=== PATIENT | male | born 1935 | race Hispanic/Latino ===

== ENCOUNTER 2017-02-02 08:28 | Outpatient (CLI) | payer MEDICARE ==
--- NOTE | 2017-02-02 11:40 | CT ---
CT ABDOMEN AND PELVIS WITHOUT AND WITH IV CONTRAST: Comparison: None. History: Left testicular mass diagnosed two weeks. History of West Nile virus. Right inguinal hernia repair in the past. Hematuria. Technique: Multiple contiguous axial images were obtained in a CT of the abdomen and pelvis without and with IV contrast. Coronal reformats were performed. FINDINGS: No calcifications are seen in either kidney. The ureters and urinary bladder are unremarkable withou t suspicious lesions. No hydronephrosis is seen. No suspicious renal abnormality is present. There are calcifications in the spleen and liver compatible with granulomatous disease. The gallblad lin, adrenal glands, and pancreas are unremarkable. No free air, free fluid, or stranding changes ar e seen in the abdomen or pelvis. There is scattered diverticula in the colon. The small bowel is unremarkable. No abdominal or pelvic lymphadenopathy are present. There is prominence of the semiovale vesicles. This exam extends down through the testicles. No obvious testicular mass is appreciated but this exa m is limited in evaluation of the testicles which could be better evaluated with ultrasound. Degenerative changes are seen in the spine. Atelectasis is seen in the lung bases. A calcified granu dharmesh is seen in the right lung base. IMPRESSION: 1. No evidence of acute intraabdominal/pelvic abnormality. 2. Sequellae from prior granulomatous disease in the lung, liver, and spleen. POS: [facility]
--- NOTE | 2017-02-02 13:44 | ULT ---
TESTICULAR ULTRASOUND: HISTORY: Left testicular mass. Hematuria. COMPARISON: None. TECHNIQUE: Alexander scale, color flow, Doppler imaging, and spectral waveform analysis is performed of the left and right testicles. FINDINGS: RIGHT HEMISCROTUM: The right testicle has a homogeneous echotexture. No intratesticular masses. The right testicle me asures 2.7 x 3.0 x 3.6 cm. Right epididymis has a normal echotexture measuring 1.5 x 0.8 cm. There is an exophytic anechoic focus measuring 0.4 x 0.4 x 0.6 cm which may represent a small epididymal cyst. No significant fluid in the right hemiscrotum. LEFT HEMISCROTUM: The left testicle has a normal echotexture. No intratesticular mass. The left testicle measures 3. 9 x 3.5 x 2.5 cm. Overall, the left epididymis measures 1.1 x 0.9 cm. There is an anechoic focus m easuring 0.6 x 0.4 x 0.6 cm compatible with an epididymal cyst. No significant fluid in the left he miscrotum. TESTICULAR DOPPLER: There is vascular flow to both testicles, symmetric. IMPRESSION: 1. Bilateral epididymal cysts. 2. No evidence of intratesticular mass. 3. Symmetric vascular flow. POS: [facility]
[2017-02-02] MEDS ORDERED: Iopamidol 370 76% 100 ML VIAL ONE (14:07)
== END 2017-02-02 08:29 | disposition home or self-care (01) ==
LOC: CT 08:28
PROVIDERS: ATTEND Urology
DX: R31.29 Other microscopic hematuria (principal); D71 Functional disorders of polymorphonuclear neutrophils
CPT/HCPCS: 74178; 76870; 93976

== ENCOUNTER 2017-05-21 19:29 | Observation (INO) | payer MEDICARE ==
[2017-05-21 20:13] LABS: #Eosinphils 0.1 thou/uL (0.0-0.7); #Lymphocytes 1.3 thou/uL (1.20-3.40); #Monocytes 0.7 thou/uL (0.11-0.59); #Neutrophils 8.2 thou/uL (1.40-6.50); %Basophils 0.1 % (0.0-1.0); %Eosinophils 0.5 % (0.0-10.0); %Lymphocytes 12.6 % (21.0-51.0); %Monocytes 7.2 % (0.0-10.0); %Neutrophils 79.6 % (42.0-75.0); Hemoglobin 13.9 g/dL (14.0-18.0); Mean Corpuscular HGB CONC 33.6 g/dL (32.0-36.0); Mean Corpuscular Hemoglobin 33.5 pg (27.0-31.0); Mean Corpuscular Volume 99.6 fl (80.0-94.0); Mean Platelet Volume 8.4 fL (7.4-10.4); Platelet Count 140 thou/uL (130-400); RBC Distribution Width 11.9 % (11.5-14.5); Red Blood Cell (RBC) Count 4.16 mill/uL (4.70-6.10); White Blood Cell (WBC) Count 10.3 thou/uL (4.8-10.8)
--- NOTE | 2017-05-21 20:16 | RAD ---
CHEST ONE VIEW 05/21/17 HISTORY: Chest pain. COMPARISON: Chest one view 01/28/12. FINDINGS: There is some chronic pleural and parenchymal changes in the lung bases. No focal air space consolida tion, pneumothorax or effusion. The cardiac silhouette and mediastinal contours are similar. Multiple median sternotomy wires. IMPRESSION: No acute intrathoracic abnormality. POS: [facility]
[2017-05-21 20:32] LABS: ALT (SGPT) 17 U/L (8-55); AST (SGOT) 22 U/L (5-34); Albumin 3.8 g/dL (3.4-4.8); Alkaline Phosphatase 71 U/L (40-150); Anion Gap 14 mmol/L (10-20); BUN (Urea Nitrogen) 26 mg/dL (8.4-25.7); Bilirubin, Total 0.5 mg/dL (0.2-1.2); CK (CPK) 160 U/L (30-200); Calc. Creatinine Clearance 0 mL/min (70-130); Calcium 9.8 mg/dL (7.8-10.44); Carbon Dioxide 21 mmol/L (23-31); Chloride 108 mmol/L (98-107); Estimated GFR-MDRD 53; Globulin 3.1 g/dL (2.4-3.5); Glucose 102 mg/dL (83-110); Potassium 4.4 mmol/L (3.5-5.1); Protein, Total 6.9 g/dL (5.8-8.1); Sodium 139 mmol/L (136-145)
[2017-05-21 20:37] LABS: CKMB 4.2 ng/mL (0-6.6); Troponin I 0.015 ng/mL (< 0.028)
[2017-05-22 00:30] LABS: Troponin I 0.026 ng/mL (< 0.028)
[2017-05-22] MEDS ORDERED: Morphine 4 MG/ML Carpuject SLOW IVP PRN (01:00)
[2017-05-22] MEDS: Sodium Chloride 0.9% 1,000 ML IV SCH ×2 (03:02→16:42)
[2017-05-22 03:34] LABS: Cardiac Risk 2.4 (Less than 4.5)
[2017-05-22] MEDS ORDERED: Nitroglycerin 2% Ointment 1 INCH/1 GM Packet TOP SCH (06:00)
[2017-05-22] MEDS ORDERED: ADENOSINE 60 MG/20 ML VIAL ONE (08:16)
[2017-05-22] MEDS: Metoprolol Tartrate 25 MG TAB PO SCH ×2 (08:44→20:26)
[2017-05-22] MEDS: Aspirin 325 MG TAB PO SCH (08:44)
[2017-05-22] MEDS: Enoxaparin Sodium 40 MG/0.4 ML SYRINGE SC SCH (08:59)
[2017-05-22 09:50] LABS: Cardiac Risk 2.5 (Less than 4.5)
--- NOTE | 2017-05-22 09:53 | PDOC.PN ---
- Subjective Encounter Start Date: 05/22/17 Encounter Start Time: 07:15 Subjective: no current chest pain or dizziness -: no cough or expectoration now -: he does not recall why he was brought to ER - Objective MAR Reviewed: Yes Vital Signs & Weight: Vital Signs (12 hours) Temp Pulse Resp BP Pulse Ox 05/22/17 08:15 97.9 F 66 16 05/22/17 07:14 97.9 F 66 16 123/57 L 97 Result Diagrams: 05/21/17 20:00 05/21/17 20:00 Phys Exam - Physical Examination HEENT: PERRLA, moist MMs Neck: no JVD, supple Respiratory: no wheezing, no rales Cardiovascular: RRR, no significant murmur Gastrointestinal: soft, non-tender, positive bowel sounds Musculoskeletal: no edema, pulses present Neurological: non-focal, moves all 4 limbs Dx/Plan (1) Chest pain Code(s): R07.9 - CHEST PAIN, UNSPECIFIED Status: Acute Qualifiers: Chest pain type: unspecified Qualified Code(s): R07.9 - Chest pain, unspecified (2) Dizziness Code(s): R42 - DIZZINESS AND GIDDINESS Status: Acute (3) CAD (coronary artery disease) Code(s): I25.10 - ATHSCL HEART DISEASE OF [place] CORONARY ARTERY W/O ANG PCTRS Status: Chronic Qualifiers: Coronary Disease-Associated Artery/Lesion type: bypass graft [place] vs. transplanted heart: [place] heart Associated angina: without angina Qualified Code(s): I25.810 - Atherosclerosis of coronary artery bypass graft(s) without angina pectoris Comment: h/o cabg x5 in 2007 (4) HTN (hypertension) Code(s): I10 - ESSENTIAL (PRIMARY) HYPERTENSION Status: Chronic Qualifiers: Hypertension type: essential hypertension Qualified Code(s): I10 - Essential (primary) hypertension (5) Dementia Code(s): F03.90 - UNSPECIFIED DEMENTIA WITHOUT BEHAVIORAL DISTURBANCE Status: Chronic Qualifiers: Dementia type: unspecified type - Plan hemostable now, orthostatic BP, carotid doppler -: no fever, will check influenza Ag -: stress test, tropx3 -ve, await echo results -: ldl is good, is on lipitor -: dc home if stress test is normal * . Review of Systems - Medications/Allergies Allergies/Adverse Reactions: Allergies Allergy/AdvReac Type Severity Reaction Status Date / Time No Known Allergies Allergy Verified 05/22/17 02:32 Medications: Current Medications Aspirin (Aspirin) 325 mg PO DAILY [facility] Last Admin: 05/22/17 08:44 Dose: Not Given Enoxaparin Sodium (Lovenox) 40 mg SC 0900 [facility] Last Admin: 05/22/17 08:59 Dose: Not Given Sodium Chloride (Normal Saline 0.9%) 1,000 mls @ 75 mls/hr IV .[id number] [facility] Last Admin: 05/22/17 03:02 Dose: 1,000 mls Metoprolol Tartrate (Lopressor) 12.5 mg PO BID [facility] Last Admin: 05/22/17 08:44 Dose: Not Given Morphine Sulfate (Morphine) 2 mg SLOW IVP Q4H PRN PRN Reason: Pain Sodium Chloride (Flush - Normal Saline) 10 ml IVF Q12HR [facility] Last Admin: 05/22/17 09:25 Dose: Not Given
--- NOTE | 2017-05-22 12:02 | ULT ---
CAROTID ARTERIAL DOPPLER ULTRASOUND: DATE: 05/22/17 COMPARISON: None. HISTORY: 81-year-old male with dizziness, evaluate for carotid artery stenosis. TECHNIQUE: Multiplanar Alexander scale sonographic imaging of the arterial structures of the neck obtained with color flow and spectral analysis. FINDINGS: There is eccentric atherosclerotic plaque at the distal CCA and proximal ICA bilaterally, right great er than left. Antegrade blood flow and normal arterial waveforms are documented with the carotid and vertebral system bilaterally. VESSEL PSV (cm/sec) EDV (cm/sec) Right CCA 146 19 Right ICA 136 22 Right ECA 100 5 Left CCA 102 14 Left ICA 91 25 Left ECA 105 6 ICA/CCA ratio is 0.9 bilaterally. IMPRESSION: Increased velocity is noted within the right CCA and right ICA, correlating with a moderate degree of stenosis (50-69%). CT angiogram of neck could best assess the degree of stenosis. POS: [facility]
--- NOTE | 2017-05-22 14:15 | HP ---
CHIEF COMPLAINT: Chest pain. HISTORY OF PRESENT ILLNESS: He is an 81-year-old male with a history of hypertension, CAD, status post bypass, came to ER because of having feeling dizzy, having some chest pain, on and off dizziness for the last 2 days. So, he went to his PCP's office. Over there, a CAT scan of head was done that came back negative, but had vertigo, and he started complaining of some body aches and pain in the left arm. So, patient decided to come to the ER because of some chest tightness and pain goes to left arm. Because of persistent chest pain, he decided to come to the ER. He has had pain in the left chest; pain last started today and radiated to the left arm and also right arm, also complained of headache, pain 7/10. There is no relation with exertion. No diaphoresis. No nausea or vomiting. The patient is a very poor historian. In the ER, vital signs: Pulse 76, blood pressure 144/76, respiratory rate 18, temperature is 98.4, saturation 96% on room air. In the ER, he was given aspirin oral and kept in the hospital for chest pain rule out MA. PAST MEDICAL HISTORY: He has a history of hypertension, myocardial infarction, history of CABG. Question history of cirrhosis. PAST SURGICAL HISTORY: Appendectomy, hernia repair, CABG 5 vessels. PSYCHIATRIC HISTORY: Depression. SOCIAL HISTORY: Denies alcohol use or drug use, no smoking history. MEDICATIONS TAKEN AT HOME: Flomax 0.4 every day, Prilosec 20 mg every day, finasteride 5 mg daily, aspirin 325 every day, benazepril 5 mg daily, atorvastatin 20 mg daily, losartan 25 mg daily. FAMILY HISTORY: Noncontributory. REVIEW OF SYSTEMS: Constitutional: He denies any chills, fever, malaise, and weakness. Eyes: Denies any vision problem. ENT: Has some rhinorrhea. Denies sore throat. No bleeding from nose. Cardiovascular: He has some mild chest pain. Respiratory: He has no cough, no shortness of breath, no wheezing. Gastrointestinal: He has no abdominal pain, no diarrhea, no nausea, no vomiting. Genitourinary: Male Denies any dysuria or hematuria. Musculoskeletal: He has some left arm pain, right arm pain. Skin: Denies any rash. Neurologic: Does have some dizziness. Endocrine: Denies polyuria or polydipsia. PHYSICAL EXAMINATION: GENERAL: When examining him, he is alert, elderly male, lying in bed, and not in distress. VITAL SIGNS: Pulse 80, blood pressure 140/70, respirations 20, temperature 98.4. HEENT: Head is atraumatic, normocephalic. Pupils are round and reactive. Extraocular muscles are intact. Ears, nose, and throat are normal. Tongue mucosa moist. NECK: Supple. No JVD, no thyromegaly, no carotid bruit. CHEST: Normal vascular breathing. No added sounds. CARDIAC: S1, S2 audible. No S3 or S4. ABDOMEN: Soft. Bowel sounds audible. EXTREMITIES: No pedal edema. LABORATORY DATA: Shows EKG, pulse 82, no ST-T changes. Chest x-ray negative, no pneumonia. Labs show a WBC 10.3, hemoglobin 13.9, hematocrit 41.4, MCV 99.6 , platelets 140. Sodium 139, potassium 4.4, chloride 108, carbon dioxide 21, BUN 26, creatinine 1.2, glucose 102, calcium 9.8, total bilirubin 0.5, AST 22, ALT 17. Troponin 0.016, 0.026. Serum total protein 6.9, albumin 3.8, globulin 3.1. ASSESSMENT AND PLAN: 1. Chest pain with history of coronary artery disease and bypass in the past. Ruled out myocardial infarction by serial CK and troponin. Aspirin, nitroglycerin p.r.n., IV morphine p.r.n. for the pain. Serial troponin, echocardiogram, cardiac consultation in the morning if needed. 2. Hypertension. Continue regular medication of losartan. 3. For the hyperlipidemia, continue atorvastatin 4. Dementia. Continue Aricept. 5. History of benign prostatic hypertrophy. Continue Flomax and finasteride. 6. Mild acute kidney injury. We do not have old kidney function to compare with, though mild acute kidney injury stage 3. Continue to monitor. 7. Deep vein thrombosis prophylaxis. Lovenox. MTDD
--- NOTE | 2017-05-22 15:10 | NM ---
CARDIAC SPECT WITH EJECTION FRACTION AND WALL MOTION: HISTORY: 81-year-old male with chest pain. History of coronary artery disease. History of NH. Status post lisa nary artery bypass graft and hypertension. TECHNIQUE/FINDINGS: Adenosine sestamibi study performed. Patient was injected with 28.3 mCi technetium-99m sestamibi intr avenously for stress images and patient was injected with 9.8 mCi of technetium-99m sestamibi intrave nously for resting images. Multiple SPECT images in the short axis, vertical long axis, and horizontal long axis demonstrate no scan evidence for infarct or overt ischemia. TID: 1.38 (Upper range of normal to minimally elevated, 1.36 being normal) LHR: 0.37 EDV: 78 mL EF: 64% MYOCARDIAL PERFUSION WALL MOTION: Wall motion is unremarkable. IMPRESSION: No scan evidence for overt infarct or ischemia. Borderline TID of 1.38. POS: [facility]
--- NOTE | 2017-05-22 19:19 | CT ---
CT OF HEAD NONCONTRAST CT OF [place] OF [place] WITH 3D VOLUME RENDERING CT OF NECK WITH 3D VOLUME RENDERING: Clinical history: Stroke (CVA), dizziness. FINDINGS: Noncontrast head CT reveals no evidence of acute intracranial hemorrhage, mass effect or midline shif t. There is mild parenchymal volume loss with compensatory dilatation of the ventricular system. Mild chronic microvascular disease is present. CTA imaging of the neck reveals calcification of the imaged aortic arch, mild in degree. There is no high grade focal stenosis or occlusion of either visualized subclavian artery. Each common carotid ar prema is patent. There is eccentrically located plaque of the carotid bulbs bilaterally, greater on th e right, which does produce an approximately 60% focal stenosis at the origin of the cervical right I CA on the basis of NASCET criteria. There is soft plaque without high grade stenosis involving the pr oximal aspect of the cervical left ICA. There is no high grade focal stenosis or occlusion of either visualized vertebral artery. There is a tortuous course of the proximal left vertebral artery. There is partial termination of the distal aspect of right vertebral artery and PICA. Basilar artery is tor tuous without high grade focal stenosis. No high grade stenosis of either BUSINESS TEACHER. type circulation with hypoplastic/aplastic right P1 segment present. There is a prominent sized right posterior commu nicating artery. There is a calcification of each terminal carotid artery without high grade stenosis or occlusion. No hemodynamically significant stenosis of either visualized MCA. Bilateral ANGEL reveal no significant abnormalities. Anterior communicating arteries are unremarkable. IMPRESSION: 1. Scattered atherosclerotic vascular disease of the head and neck as discussed above. 2. There is no acute intracranial hemorrhage or mass effect. POS: [facility]
--- NOTE | 2017-05-22 20:57 | CON ---
DATE OF CONSULTATION: 05/22/2017 REASON FOR CONSULTATION: Dizziness, chest pain. HISTORY OF PRESENT ILLNESS: Mr. Avila is a pleasant 81-year-old gentleman who is a patient of Dr. Bebo Rankin. History is somewhat vague. He has underlying early dementia. His daughter states he did describe chest pressure as well as dizziness. He had left arm pain, but may have been numbness. No other exacerbating or precipitating factors present. He was seen and evaluated in the emergency room, where he was found to have an indeterminate troponin and subsequently admitted. PAST MEDICAL HISTORY: CAD, status post bypass surgery; hypertension; appendectomy; hernia repair; de pression. MEDICATIONS: Flomax, Prilosec, atorvastatin, benazepril, aspirin, finasteride, losartan. FAMILY HISTORY: Negative. REVIEW OF SYSTEMS: 10-point review of systems reviewed and as above, otherwise negative. PHYSICAL EXAMINATION: GENERAL: Patient is a pleasant male/female who is in no acute distress. The patient appears his/her stated age. VITAL SIGNS: Blood pressure 145/64, pulse 64, temperature 97.6. NEUROLOGIC: The patient is alert and oriented times 3 with no focal neurologic deficits. HEENT: Sclerae without icterus. Mouth has moist mucous membranes with normal pallor. NECK: No JVD. Carotid upstroke brisk. No bruits bilaterally. LUNGS: Clear to auscultation with unlabored respirations. BACK: No scoliosis or kyphosis. CARDIAC: Regular rate and rhythm with normal S1 and S2. No S3 or S4 noted. No significant rubs, murmurs, thrills, or gallops noted throughout the precordium. PMI is not displaced. There is no parasternal heave. ABDOMEN: Soft, nontender, nondistended. No peritoneal signs present. No hepatosplenomegaly. No abnormal striae. EXTREMITIES: 2+ femoral and 2+ dorsalis pedis pulses. No cyanosis, clubbing, or edema. SKIN: No gross abnormalities. LABORATORY DATA: Hemoglobin 13.9, peak troponin 0.026. Stress test myocardial perfusion study, no ischemia present. TID was elevated, but the end-systolic volumes appeared small. IMPRESSION: 1. Atypical chest pain. 2. Coronary artery disease. 3. Status post bypass surgery. 4. Dizziness. RECOMMENDATIONS: Mr. Avila's symptoms are somewhat atypical for angina. His troponin is negative. His stress test result is negative for ischemia. His CAD was likely over estimated due to a low end -diastolic and end-systolic volume. At this point, recommend medical therapy. A CT of the carotid i s currently pending. He does have increased velocity in the right common carotid artery, right inter nal carotid artery suggesting moderate stenosis. Other recommendations per Dr. Monica Rankin in a.m.
[2017-05-22] MEDS ORDERED: Donepezil HCl 5 MG TAB PO SCH (21:00)
[2017-05-23] MEDS: Sodium Chloride 0.9% 1,000 ML IV SCH (06:26)
[2017-05-23] MEDS: Metoprolol Tartrate 25 MG TAB PO SCH (08:38)
[2017-05-23] MEDS: Enoxaparin Sodium 40 MG/0.4 ML SYRINGE SC SCH (08:38)
[2017-05-23] MEDS: Aspirin 325 MG TAB PO SCH (08:39)
[2017-05-23] MEDS ORDERED: Docusate 100 MG CAP PO SCH (09:00)
[2017-05-23] MEDS ORDERED: Finasteride 5 MG TAB PO SCH (09:00)
[2017-05-23] MEDS ORDERED: Tamsulosin HCl 0.4 MG CAP PO SCH (09:00)
[2017-05-23] MEDS ORDERED: Atorvastatin Calcium 20 MG TAB PO SCH (09:00)
--- NOTE | 2017-05-23 11:05 | PDOC.PN ---
- Subjective Encounter Start Date: 05/23/17 Encounter Start Time: 07:00 Subjective: no dizziness, is amb in room -: daughter at bedside - Objective MAR Reviewed: Yes Vital Signs & Weight: Vital Signs (12 hours) Temp Pulse Resp BP Pulse Ox 05/23/17 08:00 97.8 F 62 16 05/23/17 07:11 97.8 F 62 16 110/55 L 95 Result Diagrams: 05/21/17 20:00 05/21/17 20:00 Phys Exam - Physical Examination HEENT: PERRLA, moist MMs Neck: no JVD, supple Respiratory: no wheezing, no rales Cardiovascular: RRR, no significant murmur Gastrointestinal: soft, non-tender, positive bowel sounds Musculoskeletal: no edema, pulses present Neurological: non-focal, moves all 4 limbs Dx/Plan (1) Chest pain Code(s): R07.9 - CHEST PAIN, UNSPECIFIED Status: Resolved Qualifiers: Chest pain type: unspecified Qualified Code(s): R07.9 - Chest pain, unspecified (2) Dizziness Code(s): R42 - DIZZINESS AND GIDDINESS Status: Resolved (3) CAD (coronary artery disease) Code(s): I25.10 - ATHSCL HEART DISEASE OF [place] CORONARY ARTERY W/O ANG PCTRS Status: Chronic Qualifiers: Coronary Disease-Associated Artery/Lesion type: bypass graft [place] vs. transplanted heart: [place] heart Associated angina: without angina Qualified Code(s): I25.810 - Atherosclerosis of coronary artery bypass graft(s) without angina pectoris Comment: h/o cabg x5 in 2007 (4) HTN (hypertension) Code(s): I10 - ESSENTIAL (PRIMARY) HYPERTENSION Status: Chronic Qualifiers: Hypertension type: essential hypertension Qualified Code(s): I10 - Essential (primary) hypertension (5) Dementia Code(s): F03.90 - UNSPECIFIED DEMENTIA WITHOUT BEHAVIORAL DISTURBANCE Status: Chronic Qualifiers: Dementia type: unspecified type (6) Carotid artery disease Code(s): I77.9 - DISORDER OF ARTERIES AND ARTERIOLES, UNSPECIFIED Status: Acute Qualifiers: Laterality: right Qualified Code(s): I77.9 - Disorder of arteries and arterioles, unspecified - Plan to f/u with [facility] as outpt -: hemostable -: d/w daughter and patient, gave a full update -: dc pt home * .
[2017-05-23 12:02] VITALS: BP 102/55; TEMP 97.6
[2017-05-23] MEDS ORDERED: ISOVUE-370 76%-LOCM 1 ML ONE (12:31)
--- NOTE | 2017-05-23 15:01 | PRG ---
DATE OF SERVICE: 05/23/2017 SUBJECTIVE: As noted, Mr. Avila was brought to the hospital here with chest pain, thought to be aty pical for angina. He has a previous history of bypass surgery and also has some degree of dementia. He is doing well today. No chest pain or pressure. OBJECTIVE: VITAL SIGNS: The blood pressure today 110/55 and pulse 62 regular. EYES: Sclerae nonicteric. LUNGS: Clear. CARDIAC: Normal S1, normal S2. ABDOMEN: Soft, nontender. EXTREMITIES: No edema. PERTINENT LABORATORY DATA: Peak troponin was 0.026, in a negative range. The LDL cholesterol one wa s 73 and one was 66. Creatinine 1.29. He had carotid studies showing only moderate narrowing, 50%-7 0% on the right side. Stress test revealed no ischemia. The TID was noted to be borderline, but the volumes were very smal l indicating this does not appear to be a clinically significant finding. ASSESSMENT: 1. Previous bypass surgery. 2. No ischemia on stress testing. 3. Cardiac enzymes just below the indeterminate range. PLAN: Discussed with the family this may be angina. I recommended continued medical therapy. Nitro glycerin if needed. If he does have recurrent chest pain, further intervention may be indicated, but at this point, based on current situation, conservative therapy appears appropriate.
--- NOTE | 2017-05-23 16:04 | CT ---
CT OF HEAD NONCONTRAST CT OF [place] OF [place] WITH 3D VOLUME RENDERING CT OF NECK WITH 3D VOLUME RENDERING: Clinical history: Stroke (CVA), dizziness. FINDINGS: Noncontrast head CT reveals no evidence of acute intracranial hemorrhage, mass effect or midline shif t. There is mild parenchymal volume loss with compensatory dilatation of the ventricular system. Mild chronic microvascular disease is present. CTA imaging of the neck reveals calcification of the imaged aortic arch, mild in degree. There is no high grade focal stenosis or occlusion of either visualized subclavian artery. Each common carotid ar prema is patent. There is eccentrically located plaque of the carotid bulbs bilaterally, greater on th e right, which does produce an approximately 60% focal stenosis at the origin of the cervical right I CA on the basis of NASCET criteria. There is soft plaque without high grade stenosis involving the pr oximal aspect of the cervical left ICA. There is no high grade focal stenosis or occlusion of either visualized vertebral artery. There is a tortuous course of the proximal left vertebral artery. There is partial termination of the distal aspect of right vertebral artery and PICA. Basilar artery is tor tuous without high grade focal stenosis. No high grade stenosis of either KETTLE COORDINATOR. type circulation with hypoplastic/aplastic right P1 segment present. There is a prominent sized right posterior commu nicating artery. There is a calcification of each terminal carotid artery without high grade stenosis or occlusion. No hemodynamically significant stenosis of either visualized MCA. Bilateral ANGEL reveal no significant abnormalities. Anterior communicating arteries are unremarkable. IMPRESSION: 1. Scattered atherosclerotic vascular disease of the head and neck as discussed above. 2. There is no acute intracranial hemorrhage or mass effect.
--- NOTE | 2017-05-24 01:11 | DIS ---
DATE OF ADMISSION: 05/22/2017 DATE OF DISCHARGE: 05/23/2017 DISCHARGE DISPOSITION: Home. PRIMARY DISCHARGE DIAGNOSES: Chest pain, dizziness, both resolved. SECONDARY DISCHARGE DIAGNOSES: Coronary artery bypass graft/coronary artery disease, hypertension, d ementia, carotid artery disease especially on the right side. PROCEDURES DONE DURING HOSPITALIZATION: Echo with 2D Doppler showed EF of 55%-60%. There was diasto lic dysfunction. Chest x-ray done showed no acute intrathoracic abnormality. Nuclear stress test do ne showed no overt infarct or ischemia, borderline TID of 1.38. Ejection fraction was 64%. Wall mot ion was unremarkable on the stress test. Carotid Doppler done showed increased velocity in the right common carotid and right internal carotid artery correlating with moderate degree of stenosis (50%-6 9%). CT angio of brain done showed no acute intracranial hemorrhage or mass effect, scattered athero sclerotic vascular disease of the head and neck was seen. Right carotid artery, there was 60% focal stenosis at the origin of the cervical right ICA on the basis of NASCET criteria. Vertebral artery, there was no high-grade focal stenosis or occlusion. Please see [facility] for complete report of the CT angio of the neck and brain. Influenza A and B antigens were negative. H&H 13 and 41, platelet c ount 140. Total cholesterol 133, triglycerides 69, LDL 66, HDL 53. Troponin x3 was negative. BUN 2 6, creatinine 1.2. INPATIENT CONSULTS: Dr. Horn/Dr. Rankin for Cardiology. DISCHARGE MEDICATIONS: Aspirin 325 mg p.o. daily, Lipitor 20 mg p.o. daily, vitamin D3 of 1000 units p.o. daily, Colace 100 mg p.o. daily, Aricept 5 mg p.o. at bedtime, finasteride 5 mg p.o. daily, Lop ressor 12.5 mg p.o. twice daily, multivitamin 1 capsule daily, omeprazole 20 mg daily, Flomax 0.4 mg p.o. daily. ALLERGIES: No known drug allergies. DISCHARGE PLAN: Patient to follow up with Dr. Rankin as advised and he also needs to follow up with Cardiothoracic Surgery for his right carotid stenosis. Family has the office number and has seen Dr. Monae in the past for his CABG. BRIEF COURSE DURING HOSPITALIZATION: Patient initially got admitted on the with complaints of c hest pain and dizziness. He has had a complete neurocardiac workup done. His ultrasound carotid rev ealed moderate right carotid stenosis and a CT angio brain was done, which confirmed the same finding s. There was no stroke. There was no acute CVA. Nuclear stress test showed no reversible ischemia, but elevated TID. He has had consultation with Dr. Horn for Cardiology and Dr. Rankin, his [facility] [employer]. Patient likely will need outpatient workup for his carotid stenosis and elevated TID. His daughter has office number for Dr. Monae and his associates and will make a followup appoi ntment shortly. If patient were to develop chest pain again, he might require cardiac catheterizatio n in view of his prior history of CABG. Please see a [facility]-pook documentation for the day of disch krystin on [facility]. He is hemodynamically stable for discharge today.
== END 2017-05-23 15:45 | disposition home or self-care (01) ==
LOC: ERS 19:29 → 2SW 05-22 02:08
PROVIDERS: ADMIT Family Medicine; ATTEND Family Medicine
DX: R07.9 Chest pain, unspecified (principal); R42 Dizziness and giddiness; I25.10 Atherosclerotic heart disease of native coronary artery without angina pectoris; I65.29 Occlusion and stenosis of unspecified carotid artery; I10 Essential (primary) hypertension; F03.90 Unspecified dementia, unspecified severity, without behavioral disturbance, psychotic disturbance, mood disturbance, and anxiety; I25.2 Old myocardial infarction; F32.9 Major depressive disorder, single episode, unspecified; N40.0 Benign prostatic hyperplasia without lower urinary tract symptoms; N17.9 Acute kidney failure, unspecified; Z90.49 Acquired absence of other specified parts of digestive tract; Z95.1 Presence of aortocoronary bypass graft; Z98.890 Other specified postprocedural states
CPT/HCPCS: 70496; 70498; 71045; 78452; 80053; 80061; 82550; 82553; 84484 ×3; 85025; 87804 ×2; 93005; 93017; 93306; 93880; 94760; 96372; 99285; A9500; G0378; 36415; A4216; J0153; J1650

== ENCOUNTER 2019-09-25 15:07 | Outpatient (CLI) | payer MEDICARE, OTHER ==
--- NOTE | 2019-09-25 15:51 | RAD ---
LEFT SHOULDER 2 VIEWS: HISTORY: Acute pain in the left shoulder. 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 No acute fracture, dislocation, or alonzo ny destruction is identified. POS: [facility]
== END 2019-09-25 15:08 | disposition home or self-care (01) ==
LOC: BICRAD 15:07
PROVIDERS: ATTEND Family Medicine
DX: M25.512 Pain in left shoulder (principal); M19.012 Primary osteoarthritis, left shoulder

== ENCOUNTER 2020-10-09 13:53 | Outpatient (CLI) | payer MEDICARE, MEDICAID | END 2020-10-09 13:54 | disposition home or self-care (01) | LOC: BICRAD 13:53 | PROVIDERS: ATTEND Family Medicine | DX: M54.5 Low back pain (principal) ==

== ENCOUNTER 2021-01-07 16:11 | Inpatient (IN) | payer MEDICARE, MEDICAID, OTHER ==
[~2021-01-07 16:11] MED LIST: Iopamidol-370 76% 500 ML 1 ML ONE
[2021-01-07 17:37] LABS: ALT (SGPT) 19 U/L (8-55); AST (SGOT) 28 U/L (5-34); Albumin 3.4 g/dL (3.4-4.8); Alkaline Phosphatase 65 U/L (40-110); Anion Gap 9 mmol/L (10-20); BUN (Urea Nitrogen) 27 mg/dL (8.4-25.7); Bilirubin, Total 0.7 mg/dL (0.2-1.2); Calc. Creatinine Clearance 0 mL/min (70-130); Calcium 9.4 mg/dL (7.8-10.44); Carbon Dioxide 27 mmol/L (23-31); Chloride 111 mmol/L (98-107); Glucose 136 mg/dL (83-110); Lipase 7 U/L (8-78); Potassium 4.4 mmol/L (3.5-5.1); Protein, Total 6.4 g/dL (5.8-8.1); Sodium 143 mmol/L (136-145)
[2021-01-07 17:52] LABS: #Lymphocytes 0.7 thou/uL (1.20-3.40); #Monocytes 0.6 thou/uL (0.11-0.59); #Neutrophils 8.2 thou/uL (1.40-6.50); %Basophils 0.1 % (0.0-1.0); %Eosinophils 0.5 % (0.0-10.0); %Lymphocytes 7.7 % (21.0-51.0); %Monocytes 5.8 % (0.0-10.0); %Neutrophils 85.9 % (42.0-75.0); Hemoglobin 13.3 g/dL (14.0-18.0); Mean Corpuscular HGB CONC 34.5 g/dL (32.0-36.0); Mean Corpuscular Hemoglobin 34.5 pg (27.0-31.0); Mean Platelet Volume 8.8 fL (7.4-10.4); Platelet Count 117 thou/uL (130-400); Red Blood Cell (RBC) Count 3.86 mill/uL (4.70-6.10); White Blood Cell (WBC) Count 9.6 thou/uL (4.8-10.8)
[2021-01-07] MEDS ORDERED: Ondansetron PF 4 MG/2 ML Vial IVP PRN (20:30)
[2021-01-07] MEDS ORDERED: Acetaminophen 325 MG TAB PO PRN (20:30)
[2021-01-07] MEDS ORDERED: Ondansetron ODT 4 MG TAB SL PRN (20:30)
[2021-01-07] MEDS ORDERED: Lactated Ringer's 1,000 ML IV SCH (20:30)
[2021-01-07] MEDS ORDERED: Bisacodyl 5 MG TAB PO PRN (21:02)
[2021-01-07] MEDS ORDERED: Senokot S 8.6-50 MG TAB PO PRN (21:02)
[2021-01-07 21:14] LABS: Lactic Acid 1.7 mmol/L (0.5-2.2)
[2021-01-07 22:45] VITALS: BMI 23.8
[2021-01-07 22:58] LABS: Bacteria/HPF None Seen HPF (None Seen); Bilirubin Negative (Negative); Blood, Urine Trace (Negative); Clarity Clear (Clear); Glucose, Urine (Dipstick) Normal (Negative); Ketone, Urine Negative (Negative); Leukocyte Negative Leu/uL (Negative); Nitrite Negative (Negative); Protein, Urine (Dipstick) 10 mg/dL (Neg-Trace); Specific Gravity, Urine 1.046 (1.002-1.036); Squamous Epithelial None Seen HPF (0-3); Urobilinogen Normal mg/dL (Less than 2); WBC/HPF 0-3 HPF (0-3); pH, Urine 6.5 (5.0-9.0)
[2021-01-07] MEDS: Sodium Chloride 0.9% 1,000 ML IV SCH (23:55)
[2021-01-08 04:51] LABS: Hemoglobin 12.4 g/dL (14.0-18.0); Mean Corpuscular HGB CONC 34.8 g/dL (32.0-36.0); Mean Corpuscular Hemoglobin 34.6 pg (27.0-31.0); Mean Corpuscular Volume 99.4 fL (78.0-98.0); Mean Platelet Volume 8.7 fL (7.4-10.4); Platelet Count 113 thou/uL (130-400); RBC Distribution Width 11.8 % (11.5-14.5); Red Blood Cell (RBC) Count 3.58 mill/uL (4.70-6.10); White Blood Cell (WBC) Count 7.4 thou/uL (4.8-10.8)
[2021-01-08 04:58] LABS: Anion Gap 10 mmol/L (10-20); BUN (Urea Nitrogen) 20 mg/dL (8.4-25.7); Calc. Creatinine Clearance 54 mL/min (70-130); Calcium 8.7 mg/dL (7.8-10.44); Carbon Dioxide 24 mmol/L (23-31); Chloride 112 mmol/L (98-107); Glucose 92 mg/dL (83-110); Potassium 3.8 mmol/L (3.5-5.1); Sodium 142 mmol/L (136-145)
[2021-01-08 06:41] LABS: Band 9 % (5-11); Eosinophils 1 % (0-10); Lymphocytes 30 % (21-51); MDiff Complete? YES; Monocytes 4 % (0-10); Neutrophil 56 % (42-75); Platelet Morphology Comment Appears Decreased
[2021-01-08] MEDS: Metoprolol Tartrate 25 MG TAB PO SCH ×2 (09:53→20:33)
[2021-01-08] MEDS: Aspirin 325 MG TAB PO SCH (09:53)
[2021-01-08] MEDS: Finasteride 5 MG TAB PO SCH (09:53)
[2021-01-08] MEDS: Atorvastatin Calcium 20 MG TAB PO SCH (09:53)
[2021-01-08] MEDS: Tamsulosin HCl 0.4 MG CAP PO SCH (09:53)
[2021-01-08 10:51] LABS: Troponin I Less than 0.010 ng/mL (< 0.028)
[2021-01-08] MEDS: Sodium Chloride 0.9% 1,000 ML IV SCH (16:06)
[2021-01-08 16:55] LABS: SARS-CoV-2 PCR by NAA Not Detected (NotDetected)
[2021-01-08] MEDS ORDERED: Donepezil HCl 5 MG TAB PO SCH (21:00)
[2021-01-09 05:05] LABS: Troponin I Less than 0.010 ng/mL (< 0.028)
[2021-01-09] MEDS ORDERED: ADENOSINE 60 MG/20 ML VIAL ONE (08:49)
[2021-01-09] MEDS: Aspirin 325 MG TAB PO SCH (11:19)
[2021-01-09] MEDS: Finasteride 5 MG TAB PO SCH (11:20)
[2021-01-09] MEDS: Atorvastatin Calcium 20 MG TAB PO SCH (11:20)
[2021-01-09] MEDS: Tamsulosin HCl 0.4 MG CAP PO SCH (11:24)
[2021-01-09] MEDS: Sodium Chloride 0.9% 1,000 ML IV SCH (11:25)
[2021-01-09 16:15] VITALS: BP 154/74; TEMP 97.7
== END 2021-01-09 16:30 | disposition home or self-care (01) | DRG 313 ==
LOC: ERS 16:11 → 2NO 18:33
PROVIDERS: ADMIT Emergency Medicine; ATTEND Hospitalist
DX: R07.89 Other chest pain (principal); N17.9 Acute kidney failure, unspecified; Z66 Do not resuscitate; F03.90 Unspecified dementia, unspecified severity, without behavioral disturbance, psychotic disturbance, mood disturbance, and anxiety; I10 Essential (primary) hypertension; E78.5 Hyperlipidemia, unspecified; N40.1 Benign prostatic hyperplasia with lower urinary tract symptoms; N39.498 Other specified urinary incontinence; I25.118 Atherosclerotic heart disease of native coronary artery with other forms of angina pectoris; I77.9 Disorder of arteries and arterioles, unspecified; F32.9 Major depressive disorder, single episode, unspecified; Z20.822 Contact with and (suspected) exposure to COVID-19; Z87.440 Personal history of urinary (tract) infections; Z95.1 Presence of aortocoronary bypass graft; Z79.82 Long term (current) use of aspirin; Z79.899 Other long term (current) drug therapy; I25.2 Old myocardial infarction
CPT/HCPCS: 36415; 71045; 71275; 74174; 78452; 80048; 80053; 81001; 83605; 83690; 84484; 85007; 85025; 85027; 85379; 90471; 90732; 93005; 93017; 93306; A9500; G0009; J0153; J7050; Q9967; U0003; U0005

== ENCOUNTER 2022-08-21 13:37 | Emergency (ER) | payer OTHER, MEDICAID ==
[2022-08-21] MEDS ORDERED: Ketorolac Tromethamine 30 MG/ML VIAL ONE (14:12)
== END 2022-08-21 16:07 | disposition home or self-care (01) ==
LOC: ERS 13:37
DX: M54.50 Low back pain, unspecified (principal); I10 Essential (primary) hypertension; Z79.82 Long term (current) use of aspirin
CPT/HCPCS: 72040; 72072; 72100; 96372; J1885

== ENCOUNTER 2022-10-14 14:05 | Inpatient (IN) | payer OTHER ==
[2022-10-14 15:25] LABS: #Neutrophils 8.9 thou/uL (1.40-6.50)
[2022-10-14 15:28] LABS: #Monocytes 0.6 thou/uL (0.11-0.59); %Basophils 0.4 % (0.0-1.0); %Eosinophils 0.3 % (0.0-10.0); %Lymphocytes 6.7 % (21.0-51.0); %Monocytes 5.8 % (0.0-10.0); %Neutrophils 86.5 % (42.0-75.0); Hemoglobin 14.9 g/dL (14.0-18.0); Mean Corpuscular HGB CONC 34.2 g/dL (32.0-36.0); Mean Corpuscular Hemoglobin 32.8 pg (27.0-31.0); Mean Platelet Volume 11.3 fL (7.4-10.4); Platelet Count 143 10x3/uL (130-400); RBC Distribution Width 13.1 % (11.5-14.5); Red Blood Cell (RBC) Count 4.54 mill/uL (4.70-6.10); White Blood Cell (WBC) Count 10.3 10x3/uL (4.8-10.8)
[2022-10-14 15:50] LABS: Bacteria/HPF None Seen HPF (None Seen); Bilirubin Negative (Negative); Blood, Urine 2+ (Negative); CAUTI Indications for Culture Alt mental st,lethar; Clarity Clear (Clear); Glucose, Urine (Dipstick) Normal (Negative); Ketone, Urine Negative (Negative); Leukocyte Negative Leu/uL (Negative); Nitrite Negative (Negative); Protein, Urine (Dipstick) 10 mg/dL (Neg-Trace); Specific Gravity, Urine 1.025 (1.002-1.036); Squamous Epithelial None Seen HPF (0-3); Urobilinogen Normal mg/dL (Less than 2); WBC/HPF 0-3 HPF (0-3)
[2022-10-14 15:53] LABS: Urine Culture Reflex No No
[2022-10-14 15:56] LABS: AST (SGOT) 18 U/L (5-34); Anion Gap 11 mmol/L (10-20); Bilirubin, Total 0.6 mg/dL (0.2-1.2); Calc. Creatinine Clearance 0 mL/min (70-130); Calcium 9.9 mg/dL (7.8-10.44); Carbon Dioxide 27 mmol/L (23-31); Chloride 108 mmol/L (98-107); Estimated GFR 68; Potassium 3.9 mmol/L (3.5-5.1); Sodium 142 mmol/L (136-145)
[2022-10-14 16:10] LABS: ALT (SGPT) 15 U/L (8-55); Albumin 3.8 g/dL (3.4-4.8); Alkaline Phosphatase 77 U/L (40-110); BUN (Urea Nitrogen) 24 mg/dL (8.4-25.7); Globulin 3.1 g/dL (2.4-3.5); Glucose 114 mg/dL (83-110)
[2022-10-14] MEDS ORDERED: Ipratropium/Albuterol 3 ML NEB NEB PRN (17:07)
[2022-10-14] MEDS ORDERED: Ondansetron PF 4 MG/2 ML Vial IVP PRN (17:07)
[2022-10-14] MEDS ORDERED: Sodium Chloride 0.9% 1,000 ML IV SCH (17:15)
[2022-10-14] MEDS ORDERED: hydrALAZINE 20 MG/ML VIAL SLOW IVP PRN (17:21)
[2022-10-14 21:33] VITALS: BMI 23.6
[2022-10-14] MEDS: Donepezil HCl 5 MG TAB PO SCH (21:35)
[2022-10-14] MEDS: Senokot S 8.6-50 MG TAB PO SCH (21:35)
[2022-10-14] MEDS: Metoprolol Tartrate 25 MG TAB PO SCH (21:36)
[2022-10-14] MEDS: Famotidine/PF 20 mg/2ml Vial SLOW IVP SCH (21:36)
[2022-10-14] MEDS: Acetaminophen 500 MG TAB PO SCH ×2 (21:43→23:40)
[2022-10-15] MEDS: Acetaminophen 500 MG TAB PO SCH ×4 (06:10→23:11)
[2022-10-15 06:47] LABS: #Basophils 0.1 thou/uL (0.0-0.2); #Eosinphils 0.2 thou/uL (0.0-0.7); #Monocytes 0.8 thou/uL (0.11-0.59); %Basophils 0.7 % (0.0-1.0); %Eosinophils 2.1 % (0.0-10.0); %Lymphocytes 21.1 % (21.0-51.0); %Monocytes 10.2 % (0.0-10.0); %Neutrophils 65.6 % (42.0-75.0); Hemoglobin 15.3 g/dL (14.0-18.0); Mean Corpuscular Hemoglobin 32.8 pg (27.0-31.0); Mean Corpuscular Volume 96.6 fl (78.0-98.0); Mean Platelet Volume 11.3 fL (7.4-10.4); Platelet Count 138 10x3/uL (130-400); RBC Distribution Width 12.9 % (11.5-14.5); Red Blood Cell (RBC) Count 4.66 mill/uL (4.70-6.10); White Blood Cell (WBC) Count 7.7 10x3/uL (4.8-10.8)
[2022-10-15 06:59] LABS: PTT 41.5 sec (22.9-36.1); Prothrombin Time 13.5 sec (12.0-14.7)
[2022-10-15 07:19] LABS: Anion Gap 14 mmol/L (10-20); BUN (Urea Nitrogen) 16 mg/dL (8.4-25.7); Calc. Creatinine Clearance 54 mL/min (70-130); Calcium 9.4 mg/dL (7.8-10.44); Carbon Dioxide 22 mmol/L (23-31); Chloride 108 mmol/L (98-107); Estimated GFR 84; Glucose 80 mg/dL (83-110); Potassium 3.5 mmol/L (3.5-5.1); Sodium 140 mmol/L (136-145)
[2022-10-15] MEDS ORDERED: Tamsulosin HCl 0.4 MG CAP PO SCH (09:00)
[2022-10-15] MEDS ORDERED: Atorvastatin Calcium 20 MG TAB PO SCH (09:00)
[2022-10-15] MEDS: Famotidine/PF 20 mg/2ml Vial SLOW IVP SCH ×2 (10:35→21:23)
[2022-10-15] MEDS: Finasteride 5 MG TAB PO SCH (10:35)
[2022-10-15] MEDS: Senokot S 8.6-50 MG TAB PO SCH (10:35)
[2022-10-15] MEDS: Metoprolol Tartrate 25 MG TAB PO SCH ×2 (10:35→21:24)
[2022-10-15] MEDS: Atorvastatin Calcium 20 MG TAB PO SCH (21:23)
[2022-10-15] MEDS: Donepezil HCl 5 MG TAB PO SCH (21:23)
[2022-10-15] MEDS: Tamsulosin HCl 0.4 MG CAP PO SCH (21:25)
[2022-10-16] MEDS: Acetaminophen 500 MG TAB PO SCH ×4 (05:09→23:47)
[2022-10-16] MEDS: Famotidine/PF 20 mg/2ml Vial SLOW IVP SCH ×2 (10:00→20:03)
[2022-10-16] MEDS: Docusate Sodium 100 MG/10 ML UDCUP PO SCH ×2 (10:00→20:03)
[2022-10-16] MEDS: Metoprolol Tartrate 25 MG TAB PO SCH ×2 (10:01→20:03)
[2022-10-16] MEDS: Finasteride 5 MG TAB PO SCH (10:01)
[2022-10-16] MEDS: Atorvastatin Calcium 20 MG TAB PO SCH (20:03)
[2022-10-16] MEDS: Donepezil HCl 5 MG TAB PO SCH (20:03)
[2022-10-16] MEDS: Tamsulosin HCl 0.4 MG CAP PO SCH (20:03)
[2022-10-16] MEDS ORDERED: Docusate Sodium 10 MG/1 ML Oral Suspension PO SCH (21:00)
[2022-10-17] MEDS: Acetaminophen 500 MG TAB PO SCH ×4 (05:01→23:21)
[2022-10-17] MEDS: Famotidine/PF 20 mg/2ml Vial SLOW IVP SCH ×2 (10:09→20:10)
[2022-10-17] MEDS: Metoprolol Tartrate 25 MG TAB PO SCH ×2 (10:09→20:09)
[2022-10-17] MEDS: Docusate Sodium 100 MG/10 ML UDCUP PO SCH ×2 (10:09→20:09)
[2022-10-17] MEDS: Finasteride 5 MG TAB PO SCH (10:10)
[2022-10-17] MEDS: Tamsulosin HCl 0.4 MG CAP PO SCH (20:09)
[2022-10-17] MEDS: Atorvastatin Calcium 20 MG TAB PO SCH (20:09)
[2022-10-17] MEDS: Donepezil HCl 5 MG TAB PO SCH (20:10)
[2022-10-18] MEDS: Acetaminophen 500 MG TAB PO SCH ×4 (05:51→23:34)
[2022-10-18] MEDS: Docusate Sodium 100 MG/10 ML UDCUP PO SCH ×2 (09:44→21:26)
[2022-10-18] MEDS: Metoprolol Tartrate 25 MG TAB PO SCH ×2 (09:44→21:26)
[2022-10-18] MEDS: Finasteride 5 MG TAB PO SCH (09:44)
[2022-10-18] MEDS: Famotidine 20 MG TAB PO SCH ×2 (09:45→21:26)
[2022-10-18] MEDS: Famotidine/PF 20 mg/2ml Vial SLOW IVP SCH (09:51)
[2022-10-18] MEDS: Donepezil HCl 5 MG TAB PO SCH (21:26)
[2022-10-18] MEDS: Atorvastatin Calcium 20 MG TAB PO SCH (21:26)
[2022-10-18] MEDS: Tamsulosin HCl 0.4 MG CAP PO SCH (21:26)
[2022-10-19] MEDS: Acetaminophen 500 MG TAB PO SCH ×4 (05:36→22:40)
[2022-10-19] MEDS: Metoprolol Tartrate 25 MG TAB PO SCH ×2 (08:26→20:50)
[2022-10-19] MEDS: Finasteride 5 MG TAB PO SCH (08:26)
[2022-10-19] MEDS: Famotidine 20 MG TAB PO SCH ×2 (08:27→20:50)
[2022-10-19] MEDS: Docusate Sodium 100 MG/10 ML UDCUP PO SCH ×2 (08:31→20:51)
[2022-10-19] MEDS: Atorvastatin Calcium 20 MG TAB PO SCH (20:50)
[2022-10-19] MEDS: Donepezil HCl 5 MG TAB PO SCH (20:50)
[2022-10-19] MEDS: Tamsulosin HCl 0.4 MG CAP PO SCH (20:50)
[2022-10-20] MEDS: Acetaminophen 500 MG TAB PO SCH ×3 (04:52→19:28)
[2022-10-20] MEDS: Docusate Sodium 100 MG/10 ML UDCUP PO SCH ×2 (07:57→19:29)
[2022-10-20] MEDS: Metoprolol Tartrate 25 MG TAB PO SCH ×2 (07:57→19:29)
[2022-10-20] MEDS: Finasteride 5 MG TAB PO SCH (07:58)
[2022-10-20] MEDS: Famotidine 20 MG TAB PO SCH ×2 (07:58→19:29)
[2022-10-20] MEDS: Donepezil HCl 5 MG TAB PO SCH (19:29)
[2022-10-20] MEDS: Tamsulosin HCl 0.4 MG CAP PO SCH (19:29)
[2022-10-20] MEDS: Atorvastatin Calcium 20 MG TAB PO SCH (19:29)
[2022-10-21] MEDS: Acetaminophen 500 MG TAB PO SCH ×2 (05:18→19:37)
[2022-10-21] MEDS: Famotidine 20 MG TAB PO SCH ×2 (07:55→21:29)
[2022-10-21] MEDS: Docusate Sodium 100 MG/10 ML UDCUP PO SCH ×2 (07:56→21:32)
[2022-10-21] MEDS: Finasteride 5 MG TAB PO SCH (07:56)
[2022-10-21] MEDS: Metoprolol Tartrate 25 MG TAB PO SCH ×2 (07:56→21:28)
[2022-10-21 20:30] VITALS: BP 126/69; TEMP 97.9
[2022-10-21] MEDS: Donepezil HCl 5 MG TAB PO SCH (21:28)
[2022-10-21] MEDS: Atorvastatin Calcium 20 MG TAB PO SCH (21:28)
[2022-10-21] MEDS: Tamsulosin HCl 0.4 MG CAP PO SCH (21:29)
== END 2022-10-21 22:00 | DRG 84 ==
LOC: ERS 14:05 → SURG B 17:11 → INTOOBSV 17:11 → OBSVTOIN 10-15 17:31 → SURG A 10-15 20:38
PROVIDERS: ADMIT Specialist; ATTEND Specialist
PROC: 0HQ1XZZ Repair Face Skin, External Approach (ICD-10-PCS; principal; 2022-10-15)
DX: S06.6XAA Traumatic subarachnoid hemorrhage with loss of consciousness status unknown, initial encounter (principal); S06.5XAA Traumatic subdural hemorrhage with loss of consciousness status unknown, initial encounter; I10 Essential (primary) hypertension; I25.2 Old myocardial infarction; R29.818 Other symptoms and signs involving the nervous system; I25.10 Atherosclerotic heart disease of native coronary artery without angina pectoris; S01.112A Laceration without foreign body of left eyelid and periocular area, initial encounter; R13.10 Dysphagia, unspecified; G30.9 Alzheimer's disease, unspecified; F02.80 Dementia in other diseases classified elsewhere, unspecified severity, without behavioral disturbance, psychotic disturbance, mood disturbance, and anxiety; W18.30XA Fall on same level, unspecified, initial encounter; F32.A Depression, unspecified; S01.81XA Laceration without foreign body of other part of head, initial encounter; M62.421 Contracture of muscle, right upper arm; G31.9 Degenerative disease of nervous system, unspecified; Y92.044 Garage of boarding-house as the place of occurrence of the external cause; Z79.82 Long term (current) use of aspirin; Z95.1 Presence of aortocoronary bypass graft; Z79.02 Long term (current) use of antithrombotics/antiplatelets; Z79.891 Long term (current) use of opiate analgesic; Z79.1 Long term (current) use of non-steroidal anti-inflammatories (NSAID); Z90.49 Acquired absence of other specified parts of digestive tract; Z98.890 Other specified postprocedural states; I69.391 Dysphagia following cerebral infarction; I69.398 Other sequelae of cerebral infarction
CPT/HCPCS: 36415; 70450; 80048; 80053; 81001; 84484; 85025; 85610; 85730; 93005; 93970; 96374; 96376; G0378; J7050; S0028